=== PATIENT | male | born 1945 | race Caucasian/White ===

== ENCOUNTER 2017-06-16 13:14 | Emergency (ER) | payer MEDICARE, OTHER ==
[2017-06-16] MEDS ORDERED: MECLIZINE HCL 25 MG TABLET PO ONE (13:50)
[2017-06-16 14:01] LABS: Hematocrit 44.8 % (42.0-52.0); Hemoglobin 15.6 gm/dL (13.5-18.0); Mean Cell Volume 90.1 fl (78-100); Mean Corpuscular Hemoglobin 31.4 pg (27-31); Mean Corpuscular Hgb Conc 34.8 g/dl (32-36); Mean Platelet Volume 11.2 fl (6.0-9.5); Neutrophil # 4.8 K/mm3 (1.3-6.0); Neutrophil % 56.5 % (42-75.0); Platelet Count 124 K/mm3 (150-450); Red Blood Count 4.97 M/mm3 (4.7-6.0); Red Cell Distribution Width 12.3 % (11.5-14.0); White Blood Count 8.4 K/mm3 (4.0-10.5)
[2017-06-16 14:16] LABS: Albumin * 3.1 gm/dl (3.4-5.0); BUN/Creatinine Ratio 11.4 (9.0-21.6); Bilirubin, Total 0.7 mg/dL (0.0-1.1); Ca. Corrected For Albumin 8.6 mg/dL (8.4-10.2); Calcium * 8.2 mg/dL (7.9-10.9); Carbon Dioxide 24.8 mmol/L (24-32.6); Potassium 4.8 mmol/L (3.4-4.6); Total Protein 6.5 gm/dL (6.2-8.2)
[2017-06-16 14:18] LABS: Troponin I 0.064 ng/ml (0.00-0.10)
--- NOTE | 2017-06-16 14:18 | ERNOTE ---
Medical Problem HPI - General Chief Complaint: General Assessment Time Seen by Provider: 06/16/17 13:37 Source: patient, family Exam Limitations: no limitations - Immun/Allergies/Home Medications Allergies/Adverse Reactions: Allergies codeine Allergy (Verified 06/16/17 13:21) hydrocodone Allergy (Verified 06/16/17 13:21) Penicillins Allergy (Verified 06/16/17 13:21) Anaphylaxis Home Medications: HOME MEDICATIONS Meclizine HCl [Antivert] 25 mg PO DAILY PRN #10 tablet 06/16/17 [Last Taken Unknown] - History of Present History Narrative: Patient presents with an episode of his chronic vertigo. Patient and agree that he's had multiple episodes of vertigo and occasionally he passes out when he gets too bad. He had another one of these episodes today states he is back to his baseline now. He states he has been to see both neurology and cardiology regarding these vertigo episodes and nobody can find a definitive cause. At this juncture he denies any symptomatology and has no complaint. Timing: gone now Severity: moderate Review of Systems - Review of Systems Constitutional: Present: See HPI EYE: Present: no symptoms reported ENT: Present: no symptoms reported Respiratory: Present: no symptoms reported Cardiology: Present: palpitations Gastrointestinal/Abdominal: Present: no symptoms reported Genitourinary: Present: no symptoms reported Musculoskeletal: Present: no symptoms reported Skin: Present: no symptoms reported Neurological: Present: no symptoms reported Endocrine: Present: no symptoms reported Hematologic/Lymphatic: Present: no symptoms reported Psych: Present: no symptoms reported - Patient's Past Medical History Patient History - Medical: No pertinent hx, Other - chronic intermittent vertigo Patient History - Cardiac/Respiratory: No pertinent hx, Other - palpitations Patient History - Cancer: No Hx of Cancer Patient History - Surgical Procedures: Other Patient History - Other: None - Social History Living Situations: home Abuse History: No History of abuse Psych History: No pertinent hx Alcohol Use: none Drug Use: none Physical Exam - Physical Exam General Appearance: Present: wd/wn, alert, no apparent distress Eye Exam: Normal inspection: bilateral, PERRL: bilateral Ears, Nose, Throat: Present: normal ENT inspection, H, normal pharynx Neck: Present: normal inspection, nontender Respiratory: Present: no respiratory distress, normal breath sounds, no accessory muscle use, chest nontender, lungs clear Cardiovascular/Chest: Present: no murmur, irregularly irregular, other - While the monitor says a heart rate of 62 on palpation patient actually is a pulse of 44 Gastrointestinal/Abdominal: Present: normal bowel sounds, nontender, nondistended, soft, no organomegaly Rectal Exam: Present: deferred Back Exam: Present: normal inspection, normal range of motion Extremity Exam: Present: normal inspection, non-tender, no edema, normal range of motion Neurological Exam: Present: alert, oriented, normal mood/affect Skin Exam: Present: normal color, warm/dry Lymphatic Exam: Present: no adenopathy ED Progress - Results and Orders Patient's Lab Results:: I have reviewed the patient's lab results. - Vital Signs Patient's Vital Signs:: I have reviewed the patient's vital signs. Vital Signs: Vital Signs 06/16/17 06/16/17 13:16 13:28 Temperature 35.7 C L Pulse Rate 58 L 63 Respiratory 18 15 Rate Blood Pressure 135/69 126/63 O2 Sat by Pulse 99 99 Oximetry - EKG EKG: NSR, premature ventricular contraction EKG read: Interp. by me - X-Ray X-Ray #1 X-Ray: chest Interpretation: Reviewed by me - Progress/Reassessment Chief Complaint: General Assessment Plan - Plan Plan: Patient has a profound history of vertigo and palpitations. He states that he has passed out numerous times however he has not passed out. Several years this bad. He has been to see multiple specialists regarding this including neurology and cardiology and feels like he is back to his baseline. I did give him 25 mg of Antivert and the vertigo perhaps got slightly better. We will try putting him on 25 mg of Antivert in the morning and he will discuss a cardiology referral for an event recorder with his family physician. Departure - Departure Clinical Impression: Vertigo, Palpitations Disposition: Home self-care Condition: Good Instructions: Vertigo, [id number], Palpitations, [id number] Prescriptions: Meclizine HCl [Antivert] 25 mg PO DAILY PRN #10 tablet PRN Reason: Vertigo
[2017-06-16] MEDS ORDERED: MECLIZINE HCL 25 MG TABLET ONE (14:24)
[2017-06-16] MEDS ORDERED: PHYTONADIONE (VIT K1) 5 MG TABLET PO ONE (14:54)
[2017-06-16] MEDS ORDERED: PHYTONADIONE (VIT K1) 5 MG TABLET ONE (15:06)
[2017-06-16 15:29] VITALS: BP 125/85
== END 2017-06-16 15:29 | disposition home or self-care (01) ==
LOC: ER 13:14
DX: R42 Dizziness and giddiness (principal); R00.2 Palpitations